=== PATIENT | female | born 1955 | race Caucasian/White ===

== ENCOUNTER → 2016-09-01 | Outpatient (CLI) | payer BC, OTHER ==
[~2016-09-01] MED LIST: ASCA500 PO; ATEN50TA8 PO; LORA-741 PO; MULT-506 PO; OMEG10007 PO; PANT40TA PO; PRVC10 PO
[2016-09-01 16:48] LABS: BLOOD UREA NITROGEN 17 mg/dl (7-18); BUN/CREATININE RATIO 24.1 (10-20); CALCIUM 9.4 mg/dl (8.5-10.1); CARBON DIOXIDE 32 mmol/L (21-32); CHLORIDE 103 mmol/L (98-107); CREATININE 0.71 mg/dl (0.60-1.20); GLUCOSE 90 mg/dl (70-99); POTASSIUM 4.2 mmol/L (3.5-5.1); SODIUM 141 mmol/L (136-145)
== END | disposition home or self-care (01) ==
LOC: C.LABBFT 16:29
PROVIDERS: ATTEND Internal Medicine
DX: I10 Essential (primary) hypertension (principal); Z11.59 Encounter for screening for other viral diseases

== ENCOUNTER → 2016-09-19 | Outpatient (CLI) | payer BC | END | disposition home or self-care (01) | LOC: C.PAPS 11:05 → C.PATHSPEC 11:13 | PROVIDERS: ATTEND Urology | DX: I10 Essential (primary) hypertension (principal) ==

== ENCOUNTER → 2016-10-10 | Outpatient (CLI) | payer BC | END | disposition home or self-care (01) | LOC: C.PAPS 10:30 | PROVIDERS: ATTEND Obstetrics & Gynecology | DX: Z01.419 Encounter for gynecological examination (general) (routine) without abnormal findings (principal) ==

== ENCOUNTER → 2016-12-08 | Outpatient (CLI) | payer BC ==
--- NOTE | 2016-12-08 16:29 | MAMMOGRAPHY REPORT ---
BILATERAL DIGITAL SCREENING MAMMOGRAM WITH CAD: 12/08/2016 CLINICAL HISTORY: Routine screening. Patient has no complaints. TECHNIQUE: Current study was also evaluated with a Computer Aided Detection (CAD) system. Bilatera l CC and MLO views were obtained. COMPARISON: Comparison is made to exams dated: 11/19/2015 mammogram, 11/17/2014 mammogram, 11/15/2013 mammogram, 10/22/2012 mammogram, 10/17/2011 mammogram, and 10/14/2010 mammogram - [facility]. BREAST COMPOSITION: The tissue of both breasts is heterogeneously dense, which may obscure small ma sses. FINDINGS: No suspicious masses, calcifications, or areas of architectural distortion are noted in e ither breast. There has been no significant interval change compared to prior exams. Bilateral lex gn-appearing calcifications are not significantly changed. Bilateral asymmetries are stable, includ ing a nodular asymmetry seen within the right superior breast middle depth on the MLO view which is stable compared to prior exams including the 2010 and 2008 exams. IMPRESSION: ACR BI-RADS CATEGORY 2: BENIGN There is no mammographic evidence of malignancy. A 1 year screening mammogram is recommended. The p atient will receive written notification of the results. Approximately 10% of breast cancers are not detected with mammography. A negative mammographic repor t should not delay biopsy if a clinically suggestive mass is present. Arabella Nation M.D. ah/:12/08/2016 15:23:50 [employer]ble [employer] Granite Polisher: Charissa Soria RT(R)(M), [facility] letter sent: Normal 1/2 BI-RADS Code: ACR BI-RADS Category 2: Benign
== END | disposition home or self-care (01) ==
LOC: C.MAMM 13:08
PROVIDERS: ATTEND Obstetrics & Gynecology
DX: Z12.31 Encounter for screening mammogram for malignant neoplasm of breast (principal)

== ENCOUNTER → 2017-05-08 | Outpatient (CLI) | payer BC | END | disposition home or self-care (01) | LOC: C.MAMM 14:54 | PROVIDERS: ATTEND Internal Medicine | DX: M85.89 Other specified disorders of bone density and structure, multiple sites (principal); M81.0 Age-related osteoporosis without current pathological fracture ==

== ENCOUNTER → 2017-05-25 | Outpatient (CLI) | payer BC ==
--- NOTE | 2017-05-25 17:08 | DIAGNOSTIC IMAGING REPORT ---
VENOUS DOPP LOWER EXT UNILAT CLINICAL HISTORY: ANKLE/LEG PAIN pain. Edema. TECHNIQUE: Venous Doppler COMPARISON STUDY: None FINDINGS: Normal venous Doppler right leg IMPRESSION: Normal venous Doppler right leg The above report was generated using voice recognition software. It may contain grammatical, syntax or spelling errors. Electronically signed by: John Rosado M.D. 05/25/2017 5:07 PM Dictated Date/Time: 05/25/2017 5:06 PM
--- NOTE | 2017-05-25 17:37 | DIAGNOSTIC IMAGING REPORT ---
R ANKLE MIN 3 VIEWS ROUTINE CLINICAL HISTORY: ANKLE SWELLING COMPARISON: None. DISCUSSION: The bones and joint spaces appear intact. There is no evidence of fracture, dislocation or bony disease. Small heel spur. Mild soft tissue edema. IMPRESSION: Small heel spur. Mild soft tissue edema. The above report was generated using voice recognition software. It may contain grammatical, syntax or spelling errors. Electronically signed by: John Rosado M.D. 05/25/2017 5:35 PM Dictated Date/Time: 05/25/2017 5:35 PM
--- NOTE | 2017-05-25 17:39 | DIAGNOSTIC IMAGING REPORT ---
RIGHT FOOT 3 VIEWS HISTORY: Right foot swelling. ANKLE SWELLING COMPARISON: None. FINDINGS: Small plantar heel spur. No fracture or dislocation within the right foot. Soft tissue and bony bunion. 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 Soft tissue swelling within the ankle. Mild osteoarthritis at the intertarsal joints. The bones are osteopenic. No radiopaque foreign bodies. IMPRESSION: No fractures within the right foot. Additional findings as described above. Electronically signed by: Geraldo Roy M.D. 05/25/2017 5:37 PM Dictated Date/Time: 05/25/2017 5:36 PM
== END | disposition home or self-care (01) ==
LOC: C.ULTR 16:36
PROVIDERS: ATTEND Physician Assistant Medical
DX: M77.31 Calcaneal spur, right foot (principal); M19.071 Primary osteoarthritis, right ankle and foot; M85.871 Other specified disorders of bone density and structure, right ankle and foot

== ENCOUNTER → 2017-06-07 | Outpatient (CLI) | payer BC ==
[~2017-06-07] MED LIST changes: +GADAVIST IV PRN
--- NOTE | 2017-06-07 12:05 | DIAGNOSTIC IMAGING REPORT ---
RIGHT ANKLE MRI HISTORY: M79.89 Right leg swelling foot and ankle E X0D E [id number] TECHNIQUE: Multiplanar multisequence MRI of the right ankle was performed both before and after the intravenous administration of contrast. COMPARISON STUDY: Right ankle 05/25/2017. FINDINGS: There is extensive and diffuse subcutaneous edema throughout the ankle. There is a skin marker at the level of the medial malleolus. No abnormal enhancement or soft tissue masses along the medial side of the ankle. No fracture or dislocation. Small subchondral cystic focus within the lateral side of the navicular bone likely result of degenerative change. There is also mild degenerative changes at the lateral side of the calcaneocuboid articulation. The Achilles, flexor, extensor, and peroneal tendons are intact. The medial and lateral stabilizing ligaments are maintained. There is soft tissue thickening medial to the anterior talus and deep to the posterior tibialis tendon. This is deep to the skin marker. No fluid collections identified. The plantar fascia is intact. IMPRESSION: 1. No soft tissue masses identified. 2. Diffuse subcutaneous edema within the ankle. 3. Focal thickening of the soft tissues medial to the anterior talus and deep to the posterior tibialis tendon. This favors thickening of the plantar calcaneonavicular ligament. This is located deep to the patient's skin marker and may account for the questioned palpable abnormality. Electronically signed by: Geraldo Roy M.D. 06/07/2017 12:03 PM Dictated Date/Time: 06/07/2017 11:50 AM
== END | disposition home or self-care (01) ==
LOC: C.MRI 09:48
PROVIDERS: ATTEND Physician Assistant Medical
DX: M79.89 Other specified soft tissue disorders (principal)

== ENCOUNTER → 2017-09-27 | Outpatient (CLI) | payer OTHER ==
[~2017-09-27] MED LIST changes: -GADAVIST IV PRN
--- NOTE | 2017-09-27 12:50 | DIAGNOSTIC IMAGING REPORT ---
EXAMINATION: RENAL ULTRASOUND CLINICAL HISTORY: RENAL CYST COMPARISON STUDY: MRI dated 08/11/2015 FINDINGS: The right kidney measures 10.4 cm. The left kidney measures 11.8 cm. There is no evidence of hydronephrosis. There is a 15 mm right renal cyst. No bladder abnormalities are visualized. Bilateral ureteral jets were visualized. IMPRESSION : Slight interval enlargement in a 15 mm right renal cyst. No complicating features are visualized. Electronically signed by: Don Harley M.D. 09/27/2017 12:49 PM Dictated Date/Time: 09/27/2017 12:47 PM
== END | disposition home or self-care (01) ==
LOC: C.ULTR 11:32
PROVIDERS: ATTEND Urology
DX: N28.1 Cyst of kidney, acquired (principal)

== ENCOUNTER → 2017-10-23 | Outpatient (CLI) | payer OTHER | END | disposition home or self-care (01) | LOC: C.PAPS 11:31 | PROVIDERS: ATTEND Obstetrics & Gynecology | DX: Z12.4 Encounter for screening for malignant neoplasm of cervix (principal) ==

== ENCOUNTER → 2017-12-13 | Outpatient (CLI) | payer OTHER ==
--- NOTE | 2017-12-13 15:14 | MAMMOGRAPHY REPORT ---
BILATERAL DIGITAL SCREENING MAMMOGRAM TOMOSYNTHESIS WITH CAD: 12/13/2017 CLINICAL HISTORY: Routine screening. Patient has no complaints. TECHNIQUE: Breast tomosynthesis in addition to standard 2D mammography was performed. Current study was also evaluated with a Computer Aided Detection (CAD) system. COMPARISON: Comparison is made to exams dated: 12/08/2016 mammogram, 11/19/2015 mammogram, 11/17/2014 m ammogram, 11/15/2013 mammogram, 10/22/2012 mammogram, and 10/17/2011 mammogram - [facility]. BREAST COMPOSITION: The tissue of both breasts is heterogeneously dense, which may obscure small mas ses. FINDINGS: The parenchymal pattern is similar to prior mammograms. There are scattered stable round and somewhat coarse calcifications bilaterally. No developing mass, architectural distortion or clus ter of suspicious microcalcifications is seen in either breast. IMPRESSION: ACR BI-RADS CATEGORY 2: BENIGN There is no mammographic evidence of malignancy. A 1 year screening mammogram is recommended. The pa tient will receive written notification of the results. Approximately 10% of breast cancers are not detected with mammography. A negative mammographic report should not delay biopsy if a clinically suggestive mass is present. Stephanie Brush M.D. ay/:12/13/2017 14:31:06 Pneumatic Tester Mechanic: Charissa PETERSON)(), [facility] letter sent: Normal 1/2 BI-RADS Code: ACR BI-RADS Category 2: Benign
== END | disposition home or self-care (01) ==
LOC: C.MAMM 10:55
PROVIDERS: ATTEND Obstetrics & Gynecology
DX: Z12.31 Encounter for screening mammogram for malignant neoplasm of breast (principal)